=== PATIENT | female | born 1985 | race Caucasian/White ===

== ENCOUNTER 2018-04-26 14:33 | Emergency (ER) | payer MEDICAID, OTHER ==
[~2018-04-26] VITALS: Ht 167.6 cm; Wt 63.0 kg
[~2018-04-26 14:33] MED LIST: CEPH250T PO; OMEP10CA4 PO
[2018-04-26 14:51] VITALS: BP 117/74
[2018-04-26] MEDS ORDERED: CLIN150C2 PO (15:24)
== END 2018-04-26 15:35 | disposition home or self-care (01) ==
LOC: ER 14:34
DX: L02.01 Cutaneous abscess of face (principal); F11.10 Opioid abuse, uncomplicated; Z86.14 Personal history of Methicillin resistant Staphylococcus aureus infection; Z79.899 Other long term (current) drug therapy
CPT/HCPCS: 99283

== ENCOUNTER 2018-08-12 19:18 | Emergency (ER) | payer MEDICAID, OTHER ==
[~2018-08-12] VITALS: Ht 167.6 cm; Wt 61.3 kg
[2018-08-12 19:20] VITALS: BP 111/74
[2018-08-12] MEDS ORDERED: LIDOcaine 1.5% w/epinephrine 1:200,000 5ml ampul IJ ONE (20:20)
[2018-08-12] MEDS ORDERED: SULF1TAB49 PO (20:58)
== END 2018-08-12 21:08 | disposition home or self-care (01) ==
LOC: ER 19:19
DX: L02.412 Cutaneous abscess of left axilla (principal); F11.90 Opioid use, unspecified, uncomplicated; Z86.69 Personal history of other diseases of the nervous system and sense organs; Z86.14 Personal history of Methicillin resistant Staphylococcus aureus infection; Z79.2 Long term (current) use of antibiotics; Z79.899 Other long term (current) drug therapy
CPT/HCPCS: 10060; 99283; A6266; J3490

== ENCOUNTER 2019-07-15 22:31 | Emergency (ER) | payer MEDICAID ==
[~2019-07-15] VITALS: Ht 167.6 cm; Wt 56.0 kg
[~2019-07-15 22:31] MED LIST changes: -CEPH250T PO; -OMEP10CA4 PO; +OMEP10CA5 PO
[2019-07-15 22:34] VITALS: BP 131/91
[2019-07-15] MEDS ORDERED: AMOX500C2 PO (22:43)
== END 2019-07-15 22:50 | disposition home or self-care (01) ==
LOC: ER 22:32
DX: H66.92 Otitis media, unspecified, left ear (principal); F10.99 Alcohol use, unspecified with unspecified alcohol-induced disorder; F11.90 Opioid use, unspecified, uncomplicated; Z86.14 Personal history of Methicillin resistant Staphylococcus aureus infection; Z86.69 Personal history of other diseases of the nervous system and sense organs; Z79.899 Other long term (current) drug therapy; Y90.9 Presence of alcohol in blood, level not specified
CPT/HCPCS: 99283

== ENCOUNTER 2021-06-19 09:56 | Emergency (ER) | payer MEDICAID ==
[~2021-06-19] VITALS: Ht 167.6 cm; Wt 5.5 kg
[2021-06-19 10:11] VITALS: BP 116/84
[2021-06-19] MEDS ORDERED: ondansetron 4mg rapidly disintigrating tab PO ONE (10:45)
[2021-06-19] MEDS ORDERED: morphine 4 MG/ML inj SYRINge IM ONE (10:45)
[2021-06-19] MEDS ORDERED: acetaminophen 325mg tablet PO ONE (10:45)
[2021-06-19] MEDS ORDERED: proCHLORperazine 10mg tablet PO ONE (10:45)
[2021-06-19 11:30] LABS: URINE HCG NEGATIVE (NEG)
[2021-06-19 11:34] LABS: CLARITY,URINE CLEAR (Clear); COLOR,URINE YELLOW (Yellow); GLUCOSE, URINE NEGATIVE (Neg); KETONES,URINE NEGATIVE (Neg); LEUKOCYTE ESTERASE ,URINE MODERATE (Neg); NITRITES, URINE POSITIVE (Neg); OCCULT BLOOD,URINE NEGATIVE (Neg); PH,URINE 5.5 (4.8-8.0); PROTEIN,URINE TRACE mg/dl (Neg); UA COLLECTION TYPE CLN CATCH MIDSTREAM
[2021-06-19 11:47] LABS: URINE AMPHETAMINE SCREEN POSITIVE (Neg); URINE BARBITUATE SCREEN NEGATIVE (Neg); URINE BENZODIAZEPINES SCREEN NEGATIVE (Neg); URINE CANNABINOID SCREEN POSITIVE (Neg); URINE COCAINE SCREEN NEGATIVE (Neg); URINE METHADONE SCREEN NEGATIVE (Neg); URINE OPIATE SCREEN POSITIVE (Neg); URINE PHENCYCLIDINE SCREEN NEGATIVE (Neg)
[2021-06-19 11:49] LABS: BACTERIA,URINE 2+ /HPF (Neg); RBC,URINE 0-2 /HPF (0-2); SQUAMOUS EPITHELIAL CELL,UR MANY /LPF (FEW)
[2021-06-19 11:50] LABS: WBC,URINE TNTC /HPF (0-4)
[2021-06-19] MEDS ORDERED: CEPH250T PO (11:50)
[2021-06-19] MEDS ORDERED: cephalexin 250mg capsule PO ONE (11:50)
== END 2021-06-19 12:05 | disposition home or self-care (01) ==
LOC: ER 09:56
DX: N39.0 Urinary tract infection, site not specified (principal); R51.9 Headache, unspecified; M54.5 Low back pain; G40.909 Epilepsy, unspecified, not intractable, without status epilepticus; F11.90 Opioid use, unspecified, uncomplicated; Z87.440 Personal history of urinary (tract) infections; Z86.14 Personal history of Methicillin resistant Staphylococcus aureus infection; Z72.89 Other problems related to lifestyle; Z79.2 Long term (current) use of antibiotics; Z79.899 Other long term (current) drug therapy
CPT/HCPCS: 80305; 81001; 81025; 96372; 99284; J2270; Q0164